=== PATIENT | female | born 1945 | race Caucasian/White ===

== ENCOUNTER 2021-10-08 16:15 | Outpatient (CLI) | payer MEDICARE, SELFPAY ==
[2021-10-08 17:15] LABS: Hepatitis B Surface Antigen Negative (Negative)
[2021-10-08 17:32] LABS: HIV 1/2 Ab P24 Ag Result Negative (Negative); Hepatitis C Virus Antibody Negative (Negative)
== END 2021-10-08 16:16 | disposition home or self-care (01) ==
LOC: ANHLAB 16:17
PROVIDERS: PCP Family Medicine; Visit Provider Family Medicine
DX: Z77.21 Contact with and (suspected) exposure to potentially hazardous body fluids (principal); W46.0XXA Contact with hypodermic needle, initial encounter
CPT/HCPCS: 36415; 86703; 86803; 87340; G0432